=== PATIENT | female | born 1950 ===

== ENCOUNTER 2021-03-31 06:18 | Inpatient (IN) ==
[~2021-03-31 06:18] MED LIST: Buffered Lidocaine 1% SYRIN 1 ml INTRADERM ONE; DiMENhydriNATE IV 50 mg/ml 1 ml VIAL IV PUSH ONE; HYDROcodone/ACETAMIN 5/325 mg TAB PO PRN; Lactated Ringers 1000 ml BAG 1,000 ML IV SCH; Metoclopramide 5 MG/ML VIAL (10 mg) IV PRN; Naloxone 0.4 mg VIAL 0.4 mg/ml 1 ml VIAL IV PRN; Ondansetron 4 mg VIAL 2 MG/ML 2 ml VIAL IV PRN; fentaNYL 100 mcg/2 ml 50 MCG/ML VIAL IV PRN
[2021-03-31] MEDS ORDERED: ceFAZolin 2 GM in NS PREMIX 2 GM/100 ML BAG IVPB ONE (06:43)
[2021-03-31] MEDS ORDERED: DiMENhydriNATE IV 50 mg/ml 1 ml VIAL ONE (06:45)
[2021-03-31] MEDS ORDERED: Dexamethasone IV 4 MG/ML VIAL 1 ml VIAL ONE ×2 (06:57→07:15)
[2021-03-31] MEDS ORDERED: fentaNYL 100 mcg/2 ml 50 MCG/ML VIAL ONE (06:57)
[2021-03-31] MEDS ORDERED: Midazolam 2 mg/2 ml VIAL 1 mg/ml 2 ml VIAL (2 mg) ONE ×2 (06:57→07:19)
[2021-03-31] MEDS ORDERED: Bupivacaine 0.5% 50 ML MDV VIAL ONE (06:58)
[2021-03-31] MEDS ORDERED: Propofol 10 MG/ML 20 ML BTL ONE (07:15)
[2021-03-31] MEDS ORDERED: Ondansetron 4 mg VIAL 2 MG/ML 2 ml VIAL ONE (07:15)
[2021-03-31] MEDS ORDERED: fentaNYL 250 mcg/5 ml 50 MCG/ML 5 ml VIAL (250 MCG) ONE ×2 (07:16→09:40)
[2021-03-31] MEDS ORDERED: Rocuronium 50 mg VIAL 10 mg/ml 5 ml VIAL (50 mg) ONE (07:19)
[2021-03-31] MEDS ORDERED: Albuterol 2.5mg/3 ml (0.083%) NEB.SOLN INH ONE (07:21)
[2021-03-31] MEDS ORDERED: EPHEDrine (Pressors) 50 MG/ML VIAL ONE (08:45)
[2021-03-31] MEDS ORDERED: HYDROmorphone 1 MG/1 ML SYRINGE ONE ×2 (08:48→09:40)
[2021-03-31] MEDS ORDERED: Ondansetron ODT 4 mg TAB 4 MG TAB PO PRN (09:16)
[2021-03-31] MEDS ORDERED: diPHENhydraMINE IV 50 MG/ML 1 ml VIAL (BENADRYL) IV PRN (09:16)
[2021-03-31] MEDS ORDERED: diPHENhydraMINE 25 mg TAB PO PRN (09:16)
[2021-03-31] MEDS ORDERED: Magnesium Hydroxide LIQ 30 ML UDC PO PRN (09:16)
[2021-03-31] MEDS ORDERED: Lactulose 30 ml UDC PO PRN (09:16)
[2021-03-31] MEDS ORDERED: Morphine 2 MG/ML SYRINGE IV PRN (09:16)
[2021-03-31] MEDS ORDERED: Ondansetron 4 mg VIAL 2 MG/ML 2 ml VIAL IV PRN (09:16)
[2021-03-31] MEDS ORDERED: Ropivacaine 5 MG/ML 20 ML VIAL 0.5% (100 MG) ONE (09:47)
[2021-03-31] MEDS ORDERED: ceFAZolin VIAL VIAL ONE (10:00)
[2021-03-31] MEDS ORDERED: Phenylephrine 40 mcg/mL 10mL (400mcg) SYRINGE ONE (11:10)
[2021-03-31] MEDS: Lactated Ringers 1000 ml BAG 1,000 ML IV SCH (13:37)
[2021-03-31] MEDS: ceFAZolin 1 GM ADVAN 1 GM in NS 0.9% 50 ML 50 ML IVPB SCH (15:37)
[2021-03-31] MEDS: HYDROmorphone 0.5 MG/0.5 ML SYRINGE IV SLOW PU PRN ×2 (15:58→20:00)
[2021-03-31] MEDS: Magnesium Hydroxide LIQ 30 ML UDC PO SCH (19:59)
[2021-04-01] MEDS: HYDROmorphone 0.5 MG/0.5 ML SYRINGE IV SLOW PU PRN (00:14)
[2021-04-01] MEDS: Lactated Ringers 1000 ml BAG 1,000 ML IV SCH (00:14)
[2021-04-01] MEDS: ceFAZolin 1 GM ADVAN 1 GM in NS 0.9% 50 ML 50 ML IVPB SCH ×2 (00:19→09:16)
[2021-04-01 05:58] LABS: Hematocrit 28 % (35-47); Hemoglobin 9.5 g/dL (12.0-16.0); Mean Platelet Volume 7.5 fL (7.4-10.4); Platelet Count 192 10^3/uL (150-450)
[2021-04-01 06:16] LABS: Calcium 8.4 mg/dL (8.6-10.3); Potassium 4.3 mmol/L (3.5-5.0)
[2021-04-01] MEDS: Vitamin THERAPEUTIC TAB PO SCH (09:14)
[2021-04-01] MEDS: Magnesium Hydroxide LIQ 30 ML UDC PO SCH ×2 (09:14→20:36)
[2021-04-02 07:21] LABS: Hematocrit 26 % (35-47); Mean Platelet Volume 7.4 fL (7.4-10.4); Platelet Count 159 10^3/uL (150-450)
[2021-04-02] MEDS: Magnesium Hydroxide LIQ 30 ML UDC PO SCH ×2 (08:26→21:30)
[2021-04-02] MEDS: Vitamin THERAPEUTIC TAB PO SCH (08:27)
[2021-04-03 07:11] LABS: Hematocrit 26 % (35-47); Hemoglobin 9.1 g/dL (12.0-16.0); Mean Platelet Volume 7.9 fL (7.4-10.4); Platelet Count 181 10^3/uL (150-450)
[2021-04-03] MEDS: Vitamin THERAPEUTIC TAB PO SCH (08:26)
[2021-04-03] MEDS: Magnesium Hydroxide LIQ 30 ML UDC PO SCH ×2 (08:26→19:52)
[2021-04-04 05:55] LABS: Hematocrit 25 % (35-47); Hemoglobin 8.4 g/dL (12.0-16.0); Mean Platelet Volume 7.3 fL (7.4-10.4); Platelet Count 219 10^3/uL (150-450)
[2021-04-04] MEDS: Magnesium Hydroxide LIQ 30 ML UDC PO SCH ×2 (08:01→20:49)
[2021-04-04] MEDS: Vitamin THERAPEUTIC TAB PO SCH (08:02)
[2021-04-05 06:55] LABS: Hematocrit 24 % (35-47); Hemoglobin 8.4 g/dL (12.0-16.0); Mean Platelet Volume 7.2 fL (7.4-10.4); Platelet Count 246 10^3/uL (150-450)
[2021-04-05] MEDS: Vitamin THERAPEUTIC TAB PO SCH (08:50)
[2021-04-05] MEDS: Magnesium Hydroxide LIQ 30 ML UDC PO SCH (08:52)
[2021-04-05 12:17] VITALS: BP 120/59
== END 2021-04-05 14:06 | disposition home or self-care (01) | DRG 462 ==
LOC: SSU 06:18 → OR 06:18
PROVIDERS: ADMIT Orthopaedic Surgery Adult Reconstructive Orthopaedic Surgery; ATTEND Orthopaedic Surgery Adult Reconstructive Orthopaedic Surgery